=== PATIENT | female | born 1955 | race Caucasian/White ===

== ENCOUNTER 2017-10-29 16:25 | Outpatient (RCR) | payer OTHER, SELFPAY ==
--- NOTE | 2017-10-29 17:24 | HP.PTEVAL_ITS ---
Patient's Visit Information LUKE GAFFNEY is a 61 year old F referred to Physical Therapy by Bridger Oneal with a diagnosis of FRANNIE KNEE OA. Date of Evaluation: 10/29/17 Physical Therapist: Casi Matute - Visit Plan Frequency: 3x /Week Duration: 3 Weeks Plan: AQUATIC THERAPY FOR PAIN RELEIF, POSTURE CORRECTION/STRENGTHENING, INSTRUCTION IN APPROPRIATE BODY MECHANICS AND ACTIVITY MODIFICATIONS. DLS. FRANNIE LE ROM, STRETCHING AND STRENGTHENING. HEP INSTRUCTION. - Subjective Subjective: PATIENT REPORTS HER RIGHT KNEE IS WORSE THAN THE LEFT. SHE FELL ON IT. HER LEFT KNEE IS ALSO DEVELOPING OA. SHE IS PLANNING TO HAVE A RIGHT TKR NOVEMBER [address] ONEAL. SHE REPORTS HER RIGHT KNEE IS CAUSING HER A LOT OF PROBLEMS. SHE CAN'T BEND, SQUAT OR DO HER NORMAL ACTIVITIES AT HOME. MEDICINE HELPS. 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 SHE REPORTS HER KNEE IS REALLY SLOWING HER DOWN. SHE STATES SHE IS HAVING A HARD TIME ON STEPS TOO. SHE IS HERE TO TAKE WATER THERAPY TO IMPROVE MUCH POSSIBLE BEFORE SURGERY. SHE REPORTS SHE IS IN GOOD HEALTH OTHERWISE. SHE HAS SVT BUT IT WAS SUCCESSFULLY TREATED IN 2011 WITH SURGERY. SHE ALSO HAS AN INHALER FOR ASTHMA. RIGHT KNEE PAIN IS RANGING 2/10 TO 10/10. BETTER WITH REST AND MEDICINE AND WORSE WITH WEIGHT BEARING. - Objective THIS PATIENT AMBULATES INDEP'LY INTO PT WITHOUT ANY ASSISTIVE DEVICES LIMPTING ON THE RIGHT LE. NO LOSS OF BALANCE. SHE WALKS WITH DECREASED FRANNIE STRIDE LENGTH AND CADANCE. SHE IS ABLE TO INDEP'LY TRANSFER FROM SIT TO STAND WITHOUT THE USE OF HER UE'S. RIGHT KNEE ROM IN SUPINE WITH A HEEL SLIDE = -5 DEG EXT TO 105 DEG FLEX. LEFT KNEE ROM = -5 DEG EXT TO 116 DEG FLEX. SHE HAS PAIN IN BOTH KNEES AT THE END OF THE AVAILABLE RANGE INTO FLEXION AND WITH QUAD SETTING. SHE HAS POOR CORE STRENGTH, FRANNIE HIP STRENGTH 4/5 AND FRANNIE ANKLE STRENGTH 5/5 WITH MMT'ING. - Goals Goal 1:: DECREASE C/O FRANNIE KNEE PAIN Goal Time Frame: 4-6 Weeks Goal 2:: IMPROVE STANDING AND WALKING FUNCTION Goal Time Frame: 4-6 Weeks Goal 3:: INDEP HEP Goal Time Frame: 4-6 Weeks - Rehabilitation Potential Rehabilitation Potential: Fair - Anticipated Interventions Patient/Client Instruction: Educate patient on: Condition, Plan of Care, Risk Factors, Benefits of Fitness Program For the Purpose of:: To improve self management Therapeutic Exercise to Include: Strength training, Body mechanics, Postural training, Flexibilty training, Gait and locomotor training, In an aquatic setting, Active ROM, Dynamic Lumbar Stabilization For the Purpose of:: To decrease pain, To increase ROM, To improve muscle performance and motor function, To increase tolerance to activity/condition/ position, To improve ability of physical actions for home/community/work/leisure , To improve gait and locomotor functions Thank you for the opportunity to evaluate your patient. For Medicare and Medicare HMO plans, please review the plan of care and approve it. It will need to be FAXED BACK to us at [phone] for Medicare purposes. Please let me know if there are questions or concerns regarding this plan of care. Physician Signature: Date:
--- NOTE | 2018-01-13 12:12 | HP.PTDCNRP_ITS ---
HP - Discharge Summary (1) - Patient Information LUKE GAFFNEY was seen in my office for initial evaluation on 10/29/17. The following Plan of Care was established for this patient: Initial Frequency: 3x /Week Initial Duration: 3 Weeks - Anticipated Interventions Patient/Client Instruction: Educate patient on: Condition, Plan of Care, Risk Factors, Benefits of Fitness Program For the Purpose of:: To improve self management Therapeutic Exercise to Include: Strength training, Body mechanics, Postural training, Flexibilty training, Gait and locomotor training, In an aquatic setting, Active ROM, Dynamic Lumbar Stabilization For the Purpose of:: To decrease pain, To increase ROM, To improve muscle performance and motor function, To increase tolerance to activity/condition/ position, To improve ability of physical actions for home/community/work/leisure , To improve gait and locomotor functions This patient was last seen in our office 10/29/17. Pertinent comments regarding their Physical therapy will appear below: This patient has not returned to Physical Therapy and is appropriate to return to MD for further follow-up as needed. At this point I will be discontinuing this patient from physical therapy. I would be happy to see this patient again in the future if found appropriate by the physician. Thank you! Casi Matute
== END 2017-10-29 19:00 | disposition home or self-care (01) ==
LOC: PT 16:25
DX: M17.0 Bilateral primary osteoarthritis of knee (principal)
CPT/HCPCS: 97162